=== PATIENT | female | born 1940 | race Caucasian/White ===

== ENCOUNTER → 2020-12-03 17:32 | Outpatient (CLI) | payer MEDICARE, SELFPAY | PROVIDERS: PCP Family Medicine; Referring Provider Family Medicine; Visit Provider Family Medicine | DX: Z11.59 Encounter for screening for other viral diseases (principal); R53.1 Weakness | CPT/HCPCS: 87635; C9803; U0005; U0003 ==

== ENCOUNTER 2025-09-23 17:26 | Inpatient (IN) | payer MEDICARE, MEDICAID, SELFPAY ==
[2025-09-23 17:52] VITALS: BP 167/78; PULSE 70; PULSE 72; RESP 18; TEMP 36.9; O2SAT 91; BMI 35.5
--- NOTE | 2025-09-23 19:00 | PCM.HP.STD ---
HPI - General General Date of Admission: 09/23/25 Date of Service: 09/24/25 Chief Complaint: Here for rehabilitation. HPI Narrative KEYLA SULLIVAN, is a 85 Female who presents with followin09/19/2025 Admit to [facility] with weakness. Brought into ED by family due to progressive weakness, recurrent falls. Workup in ED unremarkable, no chest pain, no shortness of breath, no palpitations. No abdominal pain, no nausea, no vomiting. Imaging workup unremarkable. PT/OT/CM. PT/OT recommended SNF. Pre-CERT for TCU. 09/23/2025 Admit to TCU with debility, here for rehabilitation, strengthening, prior to discharge home alone. Keyla tells me 2 years ago, she injured left foot requiring casting, and infection requiring treatment. She also has severe osteoarthritis bilateral knees, gel shots not helpful. She is not interested in knee replacement surgery at her age. She also heard from others knee replacement is a difficult procedure to go through. [facility] Medical History (Updated 09/23/25 @ 19:[address] Paul Araujo MD) Restless leg syndrome Hypothyroidism Gastric ulcer Essential (primary) hypertension Hyperlipidemia, unspecified COPD (chronic obstructive pulmonary disease) Coronary artery disease Anxiety Debility Home Medications Medication Instructions Recorded Last Taken Type albuterol sulfate 90 mcg/actuation 1 - 2 puff inhalation Q4H PRN PRN 09/23/25 Unknown History aerosol inhaler SOB/Wheezing aspirin 81 mg tablet 81 mg PO DAILY Heart health 09/23/25 Unknown History atorvastatin 80 mg tablet 80 mg PO QHS cholesterol 09/23/25 09/22/25 21:20 History calcium 500 mg (as 1 tab PO BID Bone health 09/23/25 Unknown History carbonate)-vitamin D3 5 mcg (200 unit) tablet (Calcium 500 + D) cyanocobalamin (vitamin B-12) 100 100 mcg PO DAILY supplement 09/23/25 09/23/25 08:39 History mcg tablet duloxetine 30 mg capsule,delayed 30 mg PO DAILY depression 09/23/25 09/23/25 07:40 History release esomeprazole magnesium 40 mg 40 mg PO DAILY GERD 09/23/25 Unknown History capsule,delayed release ezetimibe 10 mg tablet 10 mg PO QHS cholesterol 09/23/25 09/22/25 21:20 History levothyroxine 112 mcg tablet 112 mcg PO DAILY Thyroid 09/23/25 09/23/25 05:35 History lorazepam 2 mg tablet 2 mg PO TID PRN PRN anxiety 09/23/25 09/23/25 07:55 History losartan 50 mg tablet 50 mg PO DAILY BP 09/23/25 09/23/25 07:55 History metoprolol succinate 25 mg 25 mg PO DAILY Heart 09/23/25 09/23/25 07:55 History tablet,extended release 24 hr nitroglycerin 0.4 mg sublingual 0.4 mg sublingual Q5M PRN chest 09/23/25 Unknown History tablet pain polyethylene glycol 3350 17 17 g PO DAILY constipation 09/23/25 Unknown History gram/dose oral powder (Miralax) ropinirole 1 mg tablet 1 mg PO BID tremors 09/23/25 09/22/25 21:20 History tramadol 50 mg tablet 100 mg PO Q8H PRN Severe pain 7-10 09/23/25 09/22/25 06:40 History Allergy/AdvReac Type Severity Reaction Status Date / Time Sulfa (Sulfonamide Allergy Rash Verified 09/23/25 17:54 Antibiotics) diclofenac AdvReac Unknown PT UNSURE Verified 09/23/25 17:54 OF REACTION lisinopril AdvReac PT UNSURE Verified 09/23/25 17:54 OF REACTION Family History (Updated 09/23/25 @ 19:[address] Paul Araujo MD) Father Hypertension Cancer Brother Hypertension Surgical History (Updated 09/23/25 @ 19:[address] Paul Araujo MD) History of tubal ligation History of partial thyroidectomy History of coronary angioplasty with insertion of stent Social History (Updated 09/24/25 @ 07:[address] Paul Araujo MD) household members: children and other details: Lives with her daughter and son-in-law. Smoking Status: Former smoker alcohol intake: never substance use type: does not use ROS Constitutional Constitutional: Denies chills, fever(s) or weight gain ENT HEENT: Denies headache(s), nasal congestion or nasal discharge Cardiovascular Cardiovascular: Denies chest pain or palpitations Respiratory/Chest Respiratory/Chest: Denies cough, excessive phlegm production or shortness of breath with exertion Gastrointestinal Gastrointestinal: Denies abdominal pain, nausea or vomiting Genitourinary Genitourinary: Denies dysuria Musculoskeletal Musculoskeletal: Denies joint pain or joint swelling Integumentary Integumentary: Denies rash or wounds Neurologic Neurologic: Denies focal weakness, numbness or tingling Psychiatric Psychiatric: Denies anxiety, auditory hallucinations, depression, homicidal ideation or suicidal ideation Vital Signs Vital Signs Vital Signs: 09/23/25 17:52 Temperature 98.4 F Temperature Source Temporal Pulse Rate 72 Respiratory Rate 18 Blood Pressure 167/78 H Blood Pressure Mean 107 Blood Pressure Source Monitor Blood Pressure Position Semi-Fowlers Blood Pressure Location Left Arm Pulse Ox 91 Oxygen Delivery Method Room Air Weight Weight: 85.36 kg Body Mass Index (BMI) 35.5 Physical Exam Const alert General Appearance: cooperative HEENT normocephalic Eyes PERRL and EOMs intact bilaterally Neck supple, no JVD and no carotid bruits Resp normal respiratory effort, normal air movement and clear to auscultation bilaterally Cardio regular rate and regular rhythm GI normal to inspection, nondistended, normoactive bowel sounds, non-tender and non-distended Extremity normal capillary refill General Extremity: Negative for edema Skin no rashes or lesions noted General Skin Exam: no breakdown Psych affect normal Appearance: appropriate Results Lab / Micro Data 09/24/25 05:19 09/24/25 06:53 Assessment & Plan Assessment/Plan (1) Debility: (2) Anxiety: (3) Coronary artery disease: (4) COPD (chronic obstructive pulmonary disease): (5) Depression: (6) Hyperlipidemia, unspecified: (7) Essential (primary) hypertension: (8) Gastric ulcer: (9) Hypothyroidism: (10) Restless leg syndrome: PLAN: Plan 85 year old female with below past medical history hospitalized for weakness, recurrent falls, no reversible causes found, admitted to TCU with debility, here for rehabilitation, strengthening, prior to discharge home alone. Debility - PT/OT. Pain - Tylenol 1000mg q6 prn pain (1-5), Tramadol 100mg q8 prn pain (7-10). Bowel - Miralax 17gm daily, senna/colace 1 tablet bid prn. Adult immunization - Administer pneumonia vaccine, covid vaccine, flu vaccine as appropriate. DVT prophylaxis - Lovenox 40mg sc daily. COPD - Albuterol 1-2 puff q4 prn. Coronary Artery Disease - Metoprolol succinate 25mg daily, Losartan 50mg daily, Aspirin 81mg daily, NTG 0.4mg sl q5m prn. Hyperlipidemia - Atorvastatin 80mg qhs, Zetia 10mg qhs. Calcium deficiency - Calcium D 1 tablet bid. Hypothyroidism - Levothyroxine 112mcg daily. Gastric ulcer - Pantoprazole 40mg daily. Restless leg syndrome - Mirapex 0.5mg bid. The following psychotropic medication was present on admission: Duloxetine 30mg daily. Psychotropic medication therapy is indicated for a diagnosis of: Major Depression. Based on my clinical evaluation, continuation of the medication is necessary at this time. Gradual dose reduction plan (select one): ____ GDR will be attempted. Will monitor patient symptoms and behaviors in response to GDR. __x__ GRD contraindicated. 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 The following psychotropic medication was present on admission: Lorazepam 2mg tid prn. Psychotropic medication therapy is indicated for a diagnosis of: Anxiety. Based on my clinical evaluation, continuation of the medication is necessary at this time. Gradual dose reduction plan (select one): ____ GDR will be attempted. Will monitor patient symptoms and behaviors in response to GDR. __x__ GRD contraindicated. Reason contraindicated: stable chronic nursing home use.
[2025-09-23] MEDS: Calcium Carb/Vitamin D 1 TABLET Tablet PO (21:02)
[2025-09-24 05:44] LABS: Hematocrit 38.5 % (37-47); Hemoglobin 12.9 g/dL (12.0-15.0); Immature Granulocytes Count 0.030 X10^3/uL (0.0-0.0); Mean Corp Hgb Conc 33.5 g/dL (32-36); Mean Corpuscular Volume 91.0 fL (81-99); Mean Platelet Vol. 10.3 fl (6.2-12.0); NRBC Flagged by Analyzer 0 % (0-5); Platelet Count 225 K/mm3 (150-450); RBC Distribution Width CV 13.4 % (11.6-14.6); RBC Distribution Width SD 44.8 fl (35.1-43.9); Red Blood Count 4.23 M/mm3 (4.2-5.4); White Blood Count 7.6 K/mm3 (4.4-11.0)
[2025-09-24 07:50] LABS: Anion Gap 9 (5-15); BUN 16 mg/dL (4-19); BUN/Creat Ratio 28.9 RATIO (10-20); Calcium,Total 9.3 mg/dL (7.6-11.0); Carbon Dioxide 26.8 mmol/L (21.0-32.0); Chloride 104 mmol/L (98-108); Estimated Creatinine Clearance 49.14 ml/min (50-250); Glucose 102 mg/dL (70-99); Potassium 4.1 mmol/L (3.3-5.1)
[2025-09-24 08:39] VITALS: PULSE 75
[2025-09-24] MEDS: Metoprolol(XL)Succ 25 MG Tablet PO (08:39)
[2025-09-24] MEDS: Calcium Carb/Vitamin D 1 TABLET Tablet PO ×2 (08:39→21:00)
[2025-09-24] MEDS: Polyethylene Glycol 3350 17 GM PACKET PO (08:43)
[2025-09-24] MEDS: Tuberculin,Purif.prot.deriv. 50 TU/ML Vial 0.1 ML ID (08:44)
[2025-09-24 08:51] VITALS: BP 150/82; PULSE 75; RESP 16; TEMP 36.8; O2SAT 93
--- NOTE | 2025-09-24 12:07 | PHA.CONS_ITS ---
Documented by User: Sigrid Hart 09/24/25 12:29 TCU RX Drug Regimen Review Subjective/Objective Subjective/Objective Subjective: TCU Admission. 85 YOF presented to outside ER with weakness. Hospitalized for weakness, recurrent falls, no reversible causes found. Admitted to TCU with debility for strengthening and rehabilitation. Objective: Allergies Sulfa (Sulfonamide Antibiotics) Allergy (Verified 09/23/25 17:54) Rash diclofenac Adverse Reaction (Unknown, Verified 09/23/25 17:54) PT UNSURE OF REACTION lisinopril Adverse Reaction (Verified 09/23/25 17:54) PT UNSURE OF REACTION Current Medications Generic Name Dose Route Start Last Admin Trade Name Freq PRN Reason Stop Dose Admin Acetaminophen 1,000 mg 09/23/25 19:33 Acetaminophen 500 Mg Tablet PO Q6H PRN PRN Pain Score 1-5 Albuterol Sulfate 1 - 2 puff 09/23/25 18:07 Albuterol Ih (6.7 Gm) 1 Puff Inhaler INHALATION Q4H PRN PRN SOB/Wheezing Aspirin 81 mg 09/24/25 08:00 09/24/25 08:39 Aspirin 81 Mg Tab.Chew PO 81 mg BREAKFAST BRUNO Administration Atorvastatin Calcium 80 mg 09/23/25 22:00 09/23/25 21:02 Atorvastatin Calcium 80 Mg Tablet PO 80 mg QHS BRUNO Administration Calcium/Vitamin D 1 tablet 09/23/25 22:00 09/24/25 08:39 Calcium Carb/Vitamin D 1 Tablet Tablet PO 1 tablet BID BRUNO Administration Duloxetine HCl 30 mg 09/24/25 10:00 09/24/25 08:39 Duloxetine Hcl 30 Mg Capsule PO 30 mg DAILY BRUNO Administration Ezetimibe 10 mg 09/23/25 22:00 09/23/25 21:02 Ezetimibe 10 Mg Tablet PO 10 mg QHS BRUNO Administration Enoxaparin Sodium 40 mg 09/24/25 08:00 09/24/25 10:13 Enoxaparin 40 Mg/0.4 Ml Syringe SC 40 mg DAILY@0600 BRUNO Administration Levothyroxine Sodium 112 mcg 09/24/25 06:00 09/24/25 05:28 Levothyroxine 112 Mcg Tablet PO 112 mcg DAILY@0600 BRUNO Administration Lorazepam 2 mg 09/23/25 17:55 09/24/25 08:47 Lorazepam 1 Mg Tablet PO 2 mg TID PRN PRN Administration ANXIETY Losartan Potassium 50 mg 09/24/25 10:00 09/24/25 08:39 Losartan Potassium 50 Mg Tablet PO 50 mg DAILY [facility] Administration Protocol Metoprolol Succinate 25 mg 09/24/25 10:00 09/24/25 08:39 Metoprolol(Xl)Succ 25 Mg Tablet PO 25 mg DAILY BRUNO Administration Protocol Nitroglycerin 0.4 mg 09/23/25 17:55 Nitroglycerin (Inpatient Use) 0.4 Mg Tab.Subl SL Q5M PRN chest pain Pantoprazole Sodium 40 mg 09/24/25 10:00 09/24/25 08:39 Pantoprazole Sodium 40 Mg Tablet PO 40 mg DAILY [facility] Administration Polyethylene Glycol 17 gm 09/24/25 10:00 09/24/25 08:43 Polyethylene Glycol 3350 17 Gm Packet PO 17 gm DAILY BRUNO Administration Pramipexole Dihydrochloride 0.5 mg 09/23/25 22:00 09/24/25 08:39 Pramipexole Di-Hcl 0.5 Mg Tablet PO 0.5 mg BID BRUNO Administration Senna/Docusate Sodium 1 tablet 09/23/25 19:32 Senna/Docusate Sodium 1 Tablet PO BID PRN Constipation Tramadol HCl 100 mg 09/23/25 17:55 09/23/25 21:03 Tramadol 50 Mg Tablet PO 100 mg Q8H PRN Administration Severe pain 7-10 Tuberculin PPD 0.1 ml 10/01/25 10:00 Tuberculin,Purif.Prot.Deriv. 50 Tu/Ml Vial ID 10/01/25 10:01 X1 ONE Problem List Restless leg syndrome (Acute) Hypothyroidism (Acute) Gastric ulcer (Acute) Essential (primary) hypertension (Acute) Hyperlipidemia, unspecified (Acute) Depression (Acute) COPD (chronic obstructive pulmonary disease) (Chronic) Coronary artery disease (Acute) Anxiety (Acute) Debility (Acute) Vital Signs Temp Pulse Resp BP Pulse Ox O2 Del Method 98.3 F 75 16 150/82 H 93 Room Air 09/24/25 08:51 09/24/25 08:51 09/24/25 08:51 09/24/25 08:51 09/24/25 08:51 09/24/25 08:51 Oxygen Delivery Method Room Air Weight: 85.36 kg Body Mass Index (BMI) 35.5 Sodium 140 mmol/L (133-145) 09/24/25 06:53 Potassium 4.1 mmol/L (3.3-5.1) 09/24/25 06:53 Chloride 104 mmol/L (98-108) 09/24/25 06:53 Carbon Dioxide 26.8 mmol/L (21.0-32.0) 09/24/25 06:53 Anion Gap 9 (5-15) 09/24/25 06:53 BUN 16 mg/dL (4-19) 09/24/25 06:53 Creatinine 0.54 mg/dL (0.70-1.20) L 09/24/25 06:53 Est GFR (MDRD) Non-Af 89 (>60) 09/24/25 06:53 BUN/Creatinine Ratio 28.9 RATIO (10-20) H 09/24/25 06:53 Glucose 102 mg/dL (70-99) H 09/24/25 06:53 Assessment/Plan: 1. Pain: acetaminophen 1000mg PO Q6H PRN pain 1-5 (no doses given) and tramadol 100mg PO Q8H PRN pain 7-10 (1 dose given for pain score of 8 in the hips/legs). Monitor pain scores before/after prn administration for response, PRN pain medication usage, symptoms of pain/resident distress and ability to participate in therapy. Monitor for constipation (last BM:09/23/25), respiratory depression (current RR range:16-18), falls and sedation[facility]delirium [facility] 2. Bowel: Miralax 17gm PO daily and senna/docusate 1T PO BID PRN constipation. Resident has not used any prn doses at this time. Last document bowel movement: 09/23/25 Monitor for usage of prn medications, abdominal pain, frequency of bowel movements, diarrhea. Recommend holding bowel regimen if resident develops diarrhea. 3. DVT prophylaxis: enoxaparin 40mg SC daily. Please continue to monitor for S/S of bleeding/DVT, hemoglobin (last 12.9g/dL), platelets (last 225,000). Enoxaparin is a renally dose medication. CrCl estimated =49mL/min. Dose appropriate for current renal function. Monitor serum creatine periodically. 4. CAD: metoprolol succinate 25mg PO daily, losartan 50mg PO daily, aspirin 81mg PO daily and nitroglycerin 0.4mg SL Q5M PRN chest pain. Resident has not used any prn doses at this time. Monitor for bradyarrhythmia, fatigue, sleep disturbance and for new/worsening heart failure symptoms. For diabetic patients, monitor glucose. Monitor serum potassium (last K =4.1mmol/L), renal function (SCr =0.54mg/dL). Monitor for chest pain, shortness of breath, exercise tolerance, BP (range since admission =70-75). 5. COPD: albuterol MDI 1-2 puff Q4H PRN SOB/wheezing. Resident has not used any prn doses at this time. Please continue to monitor for S/S of SOB, wheezing and PRN usage. 6. Hyperlipidemia: atorvastatin 80mg PO QHS and ezetimibe 10mg PO QHS. No FLP in chart. Consider FLP to determine efficacy of current lipid-lowering regimen. Thanks. Please continue to monitor for muscle pain. Monitor for headache, nausea, diarrhea, new muscle pain/cramping or weakness. Consider CPK if myopathy/rhabdomyolysis suspected. Monitor AST/ALT if symptoms suggestive of hepatoxicity. 7. Hypothyroidism: levothyroxine 112mcg PO daily. Please consider ordering a TSH as there is no level in the chart. Thanks. Please continue to monitor for S/S of hypo/hyperthyroidism. 8. Gastric ulcer: pantoprazole 40mg PO daily. Monitor for diarrhea (consider possibility of C. diff if develops). Consider serum magnesium level and B12 level with long-term use if indicated. If clinically appropriate, consider dose reduction/weaning of medication due to manager intermediate risks of C. diff and fractures ([place]). 9. Restless leg syndrome: pramipexole 0.5mg PO BID. Please continue to monitor for S/S of restless legs, abnormal dreams, drowsiness, dizziness. 10. Calcium deficiency: calcium/vitamin D 1T PO BID. Please continue to monitor calcium (last 9.3mg/dL). Assessment/Plan for indications treated with psychotropic medications: 1. Depression: duloxetine 30mg PO daily. Please see physician note regarding GDR. Monitor for diarrhea, nausea, appetite/weight loss, anxiety or drowsiness, suicidal thoughts or behaviors ([facility]ed Warning), symptoms of bleeding, symptoms of serotonin syndrome (including agitation, confusion, hyperreflexia, rigidity/myoclonus, tremor, tachycardia, tachypnea), sodium levels (last Na = 140mmol/L). Monitor blood pressure. BP range since admission =150/82-167/78. Monitor for orthostatic hypotension, including postural dizziness, syncope or falls. Check orthostatic vital signs if suspicion of orthostasis. Monitor for hepatotoxicity (abdominal pain, nausea, jaundice, dark urine, AST/ALT as clinically indicated). Monitor for efficacy including resident symptoms, behaviors and indications of distress. Monitor for tolerability including mental status, cognition, excessive sleepiness, withdrawal or decreased participation in activities and decline in physical functioning. Maximize use of nonpharmacologic/behavioral interventions to facilitate dose reduction or discontinuation as appropriate. Please evaluate the appropriateness of GDR unless contraindicated. If appropriate, GDR should be attempted in 2 separate quarters within the first year of use or admission to TCU. If GDR attempted, monitor resident symptoms/behaviors. 2. Anxiety: lorazepam 2mg PO TID PRN anxiety. Please see physician note regarding GDR. Resident has had 2 doses. Monitor for sedation, mental status and cognition. Monitor for falls (risk factor for falls) and implement fall prevention strategies. Monitor for respiratory depression. RR range since admission =16-18. Monitor prn usage and efficacy of prn doses including resident symptoms, behaviors and indications of distress. Monitor for tolerability including mental status, cognition, excessive sleepiness, withdrawal or decreased participation in activities and decline in physical functioning. Maximize use of nonpharmacologic/behavior interventions to minimize use of prn medication. Prn psychotropic order must be renewed at 14 days per policy. Evaluate continued need for medication, effect of prn medication on resident’s symptoms/distress and tolerability to determine the appropriateness of order renewal. Medical chart and medication regimen reviewed. The following medication irregularities or issues were identified: 1. Atorvastatin 80mg PO QHS and ezetimibe 10mg PO QHS. No FLP in chart. Consider FLP to determine efficacy of current lipid-lowering regimen. Thanks. 2. Levothyroxine 112mcg PO daily. Please consider ordering a TSH as there is no level in the chart. Thanks. Date Date of Note: 09/24/25 Documented by User: Dr. Paul Araujo MD 09/24/25 13:10 TCU RX Drug Regimen Review Provider Comments Provider responsibility Provider Comments to Recommendations by Pharmacy Agree
--- NOTE | 2025-09-24 12:50 | CASEMGMT ---
Social Work SW met with patient to complete initial assessment. Introduced self and role. Verified contacts. Confirmed code status as full code. Son did provided electronic copies of pt's advance directives. SW placed on chart and provided to HIM. Educated to [facility] insurance with NRD 09/25 and continued stay is not guaranteed with each review. Pt's goal is to return home with dtr and [place]. SW will continue to follow for DC planning. Aniyah Levine TEXTILES SALES REPRESENTATIVE BEHAVIORAL HEALTH DIRECTOR
[2025-09-24] MEDS: Albuterol IH (6.7 GM) 1 PUFF INHALER INHALATION (14:57)
--- NOTE | 2025-09-24 15:09 | CHAPLAIN ---
Type of Pastoral Visit ___ Initial Visit ___ Follow-up Visit ___ On-call Visit ___ General Patient Visit ___ Spiritual Assessment ___ Family Conference ___ Bereavement ___ Rapid Response ___ Code Blue ___ Other (describe below) Pastoral Care Referral From ___ Patient ___ Family ___ Nurse ___ Physician ___ High School Chemistry Teacher ___ Boat Camp Operator ___ Other (describe below) Sacrament/Intervention ___ Active listening ___ Anointing ___ Religion ___ Bereavement ___ Communion ___ Margaret exploration ___ ___ Life review ___ Prayer ___ Reconciliation ___ Sacrament of Sick ___ Supportive presence ___ Wedding ___ Other (describe below) Pastoral Comments patient was unavailable at time of attempted visit
[2025-09-25 06:55] LABS: Cholesterol 136 mg/dL (<=200); Low Density Lipoprotein Calc. 62 mg/dL; Triglycerides 98 mg/dL; Very Low Density Lipoprotein 20 mg/dL (5-40); cholesterol:hdl ratio screen 2.45
[2025-09-25 09:00] VITALS: BP 136/69; PULSE 70; RESP 16; TEMP 37.1; O2SAT 93
[2025-09-25] MEDS: Albuterol IH (6.7 GM) 1 PUFF INHALER INHALATION ×2 (09:00→16:47)
[2025-09-25 09:02] VITALS: BP 136/69; PULSE 70
[2025-09-25] MEDS: Calcium Carb/Vitamin D 1 TABLET Tablet PO ×2 (09:02→21:13)
[2025-09-25] MEDS: Metoprolol(XL)Succ 25 MG Tablet PO (09:02)
[2025-09-25] MEDS: Polyethylene Glycol 3350 17 GM PACKET PO (09:13)
--- NOTE | 2025-09-25 10:50 | RAD_ITS ---
PROCEDURE: CHEST PA AND LATERAL 09/25/2025 REASON FOR EXAM: COUGH AND LOW SPO2 TECHNIQUE: Procedure Code: RADCXR Modality: DX Procedure: CHEST PA AND LATERAL COMPARISON: None. FINDINGS: Hardware: None. Heart: No cardiomegaly. Mediastinum: Unremarkable. Lungs: Clear. No pleural effusion or pneumothorax. Bones: No acute bony abnormalities. RAD/Chest PA and Lateral IMPRESSION: No acute cardiopulmonary abnormalities. Reading Location: [id number]
--- NOTE | 2025-09-25 12:01 | NURSING ---
SPO2 86% on RA this AM. Placed on 2L and SPO2 93% Incentive spirometer and PEP provided and instruction given and patient is receptive. Lungs clear, though diminished in bases and dry cough noted that patient said started in hospital in [place]. Dr Araujo made aware and CXR ordered. CXR comes back clear and patient and Dr. Araujo made aware.
--- NOTE | 2025-09-25 12:47 | NURSING ---
Camera Machinist Note: Activity Asset: Lawanda Torres is independent in her choice of daily activities. She uses her smartphone to facetime her family, they will also visit. She enjoys anabaptism, reading tv and spending time w/family. Staff will remind her of weekly activities and respect her right to say no.
--- NOTE | 2025-09-25 13:44 | CHAPLAIN ---
Type of Pastoral Visit _x__ Initial Visit ___ Follow-up Visit ___ On-call Visit ___ General Patient Visit ___ Spiritual Assessment ___ Family Conference ___ Bereavement ___ Rapid Response ___ Code Blue ___ Other (describe below) Pastoral Care Referral From _x__ Patient ___ Family ___ Nurse ___ Physician ___ Client Server Programmer ___ Editor School Photograph ___ Other (describe below) Sacrament/Intervention _x__ Active listening ___ Anointing ___ Mosque ___ Bereavement ___ Communion _x__ Margaret exploration ___ _x__ Life review _x__ Prayer ___ Reconciliation ___ Sacrament of Sick _x__ Supportive presence ___ Wedding ___ Other (describe below) Pastoral Comments patient admits to discouragement and in struggling to accept the changes in her life; pt is weak and unable to walk; pt feels bad about living with her daughter but is thankful she does have them and their care; pt used to go to congregational but has become disconnected through elder years; pt expresses thankfulness for someone to talk with and to give her presence, support, and prayer; pt would like future visits if possible
[2025-09-25 14:06] VITALS: O2SAT 90
[2025-09-25] MEDS: Senna/Docusate Sodium 1 Tablet PO (15:25)
--- NOTE | 2025-09-25 17:04 | NURSING ---
Addendum entered by Luisa Puckett 09/25/25 17:59: Dr. Araujo ordered doxycycline, methylprednisone, IV fluids and aerosol treatments for patient due to cough and not feeling well. Son and patient made aware. Original Note: Patient reports she feels very tired and achey today and "like I have the flu." Dr. Araujo made aware and Covid swab and respiratory panel ordered and collected. Placed in enhanced droplet precautions until Covid test came back negative and in droplet precautions until respiratory panel came back negative and all care provided in room. Patient and son made aware of negative lab and x-ray results.
[2025-09-25] MEDS: 0.9% Normal Saline (1000mL) 1,000 ML 60 ML IV (19:09)
[2025-09-26] MEDS: Senna/Docusate Sodium 1 Tablet PO (08:19)
[2025-09-26 08:21] VITALS: BP 166/80; PULSE 77
[2025-09-26] MEDS: Metoprolol(XL)Succ 25 MG Tablet PO (08:21)
[2025-09-26] MEDS: Calcium Carb/Vitamin D 1 TABLET Tablet PO ×2 (08:21→21:06)
[2025-09-26] MEDS: MethylPREDNISolone DosePak 4 MG BOX PO ×2 (08:30)
[2025-09-26] MEDS: Polyethylene Glycol 3350 17 GM PACKET PO (08:36)
[2025-09-26 08:54] VITALS: BP 166/80; PULSE 77; RESP 18; TEMP 36.6; O2SAT 96
--- NOTE | 2025-09-26 08:55 | NURSING ---
Addendum entered by Constantino Yoder 09/26/25 18:18: D/C LOVENOX Original Note: PT HAD LARGE NOSE BLEED AND LG BLOOD CLOT IN THROAT THIS MORNING. NOTE LEFT FOR . MOISTURE ADDED TO OXYGEN.
[2025-09-26] MEDS: 0.9% Normal Saline (1000mL) 1,000 ML 60 ML IV (12:35)
[2025-09-27] MEDS: 0.9% Normal Saline (1000mL) 1,000 ML 60 ML IV ×2 (05:16→23:18)
[2025-09-27] MEDS: MethylPREDNISolone DosePak 4 MG BOX PO ×3 (07:53→20:42)
[2025-09-27] MEDS: Calcium Carb/Vitamin D 1 TABLET Tablet PO ×2 (07:55→20:43)
[2025-09-27 08:03] VITALS: BP 141/63; PULSE 60
[2025-09-27] MEDS: Metoprolol(XL)Succ 25 MG Tablet PO (08:03)
[2025-09-27] MEDS: Polyethylene Glycol 3350 17 GM PACKET PO (08:07)
[2025-09-27 10:00] VITALS: BP 141/63; PULSE 60; RESP 18; TEMP 36.9; O2SAT 96
[2025-09-27 20:29] VITALS: RESP 18; O2SAT 93
[2025-09-28 07:24] VITALS: O2SAT 93
[2025-09-28 08:50] VITALS: BP 156/88; PULSE 87
[2025-09-28] MEDS: Metoprolol(XL)Succ 25 MG Tablet PO (08:50)
[2025-09-28] MEDS: Calcium Carb/Vitamin D 1 TABLET Tablet PO ×2 (08:50→21:16)
[2025-09-28] MEDS: MethylPREDNISolone DosePak 4 MG BOX PO ×4 (08:53→21:15)
[2025-09-28 09:01] VITALS: BP 156/88; PULSE 87; RESP 18; TEMP 36.3; O2SAT 96
[2025-09-28 13:30] VITALS: PULSE 87; RESP 18; O2SAT 96
[2025-09-28 16:00] VITALS: BP 154/73; PULSE 60; RESP 14; TEMP 36.4; O2SAT 95
[2025-09-28] MEDS: 0.9% Saline Lock 10 ML Syringe IV (21:19)
[2025-09-29 07:35] VITALS: O2SAT 95
[2025-09-29] MEDS: MethylPREDNISolone DosePak 4 MG BOX PO ×4 (09:50→20:57)
[2025-09-29] MEDS: Calcium Carb/Vitamin D 1 TABLET Tablet PO ×2 (09:53→20:56)
[2025-09-29 09:54] VITALS: BP 126/61; PULSE 75
[2025-09-29] MEDS: Metoprolol(XL)Succ 25 MG Tablet PO (09:54)
[2025-09-29 10:05] VITALS: BP 126/61; PULSE 75; RESP 18; TEMP 36.4; O2SAT 94
[2025-09-29] MEDS: 0.9% Saline Lock 10 ML Syringe IV (13:24)
[2025-09-30 06:58] VITALS: O2SAT 93
--- NOTE | 2025-09-30 08:24 | NURSING ---
Administrative Intern Note; MDS for 09/30/2025 Complete
[2025-09-30 09:08] VITALS: BP 146/68; PULSE 66; RESP 17; TEMP 36.3; O2SAT 96
[2025-09-30] MEDS: MethylPREDNISolone DosePak 4 MG BOX PO ×3 (09:23→20:18)
[2025-09-30 09:25] VITALS: BP 146/68; PULSE 66
[2025-09-30] MEDS: Metoprolol(XL)Succ 25 MG Tablet PO (09:25)
[2025-09-30] MEDS: Calcium Carb/Vitamin D 1 TABLET Tablet PO ×2 (09:25→20:19)
[2025-09-30 10:00] VITALS: RESP 17; O2SAT 96
--- NOTE | 2025-09-30 11:09 | NURSING ---
offered covid vaccine, VIS provided. Resident declines.
--- NOTE | 2025-09-30 12:07 | CASEMGMT ---
Social Work SW completed BIMS () and PHQ-9 () for MDS assessment. SW explored positive responses. Pt relates her lack of energy to decline in medical condition. SW provided supportive listening. SW will continue to monitor for changes. Aniyah Levine UNIVERSITY REGISTRAR BACK SHOE OPERATOR
[2025-09-30 15:40] VITALS: BP 145/71; PULSE 59; RESP 18; TEMP 35.7; O2SAT 96
--- NOTE | 2025-09-30 20:13 | NURSING ---
Addendum entered by Lalo Henson 09/30/25 20:25: Administered HS medications and PRN Ativan at this time per pt request Original Note: Pt requests PRN Ativan at this time. Non pharmacological measures such as turning and repositioning, Tv, soft music, snack, and drink ineffective. See eMAR assessment.
[2025-09-30] MEDS: 0.9% Saline Lock 10 ML Syringe IV (20:19)
[2025-10-01 01:48] VITALS: PULSE 61; O2SAT 95
[2025-10-01 06:00] LABS: Hematocrit 40.7 % (37-47); Hemoglobin 13.6 g/dL (12.0-15.0); Immature Granulocytes Count 0.070 X10^3/uL (0.0-0.0); Mean Corp Hgb Conc 33.4 g/dL (32-36); Mean Corpuscular Volume 91.1 fL (81-99); Mean Platelet Vol. 10.4 fl (6.2-12.0); NRBC Flagged by Analyzer 0 % (0-5); Platelet Count 271 K/mm3 (150-450); RBC Distribution Width CV 13.2 % (11.6-14.6); RBC Distribution Width SD 44.1 fl (35.1-43.9); Red Blood Count 4.47 M/mm3 (4.2-5.4); White Blood Count 10.6 K/mm3 (4.4-11.0)
[2025-10-01 06:22] LABS: Anion Gap 10 (5-15); BUN 19 mg/dL (4-19); BUN/Creat Ratio 30.3 RATIO (10-20); Calcium,Total 9.8 mg/dL (7.6-11.0); Carbon Dioxide 29.0 mmol/L (21.0-32.0); Chloride 99 mmol/L (98-108); Estimated Creatinine Clearance 49.14 ml/min (50-250); Glucose 100 mg/dL (70-99); Potassium 4.4 mmol/L (3.3-5.1)
[2025-10-01 09:32] VITALS: BP 151/86; PULSE 91; RESP 18; TEMP 36.3; O2SAT 93
[2025-10-01] MEDS: MethylPREDNISolone DosePak 4 MG BOX PO (09:34)
[2025-10-01 09:35] VITALS: PULSE 91
[2025-10-01] MEDS: Calcium Carb/Vitamin D 1 TABLET Tablet PO ×2 (09:35→21:34)
[2025-10-01] MEDS: Metoprolol(XL)Succ 25 MG Tablet PO (09:35)
--- NOTE | 2025-10-01 10:21 | MDS.RN ---
Information for the MDS was obtained from review of the clinical record, interview of resident, staff, and direct observation of resident’s care. Pain assessment for MDS was completed on 09/30/25.
[2025-10-01] MEDS: Tuberculin,Purif.prot.deriv. 50 TU/ML Vial 0.1 ML ID (11:32)
[2025-10-01 18:06] VITALS: BMI 35.2
--- NOTE | 2025-10-01 23:24 | NURSING ---
During HS med pass, this nurse went to administer pt's HS meds and discovered the pt's medrol dosepak was empty even though she was scheduled to receive it through 10/02. Pharmacy notified and confirmed the pt should still have 5 doses left in the packet. Pharmacy resolved and extended the taper through 10/03. Dr. Araujo notified.
--- NOTE | 2025-10-02 09:51 | CASEMGMT ---
Addendum entered by Aniyah Levine 10/02/25 11:03: CM is Jareth Parker - Waiver Original Note: Social Work IDT met with patient and Bria Becker Diane, (children) participated via conference call for care plan meeting. Discussed patient's progress in PT/OT/SN/RDN. Educated to [facility] insurance with NRD 10/02 and continued stay is not guaranteed with each review. Provided pt/family with written communication of insurance process and copay coverage during stay. SW inquired if Bria is comfortable with having pt return home. Offered therapy training. SW to coordinate skilled HHC at time of DC. SW also updated family that this worker had a conversation with pt at admission about her mood and loss of independence. SW suggested to pt [place] from a socialization standpoint, but also to assist with caregiver needs, which pt agreed to. Family asked many insightful questions. IDT answered. Bria stated she just underwent hip surgery and she is limited with the assistance she can provide, especially while working from home. Bria asked if Waiver can provide additional COURT INTERPRETER; currently, Waiver provides 9 hrs/day. VIKKI unaware pt was active with Waiver but requested dtr provide the name of CM for SW to contact and inquire about increase in COURT INTERPRETER. SW also noted that Waiver usually pays for [place] as well. Dtr provided SW with email address and will send CM name. Family appreciative of IDT and assistance. VIKKI requested for family to notify this worker by 10/07 of DC plan. SW will continue to follow. Aniyah Levine TOLL TEST DESK WORKER ENVELOPE SEALING MACHINE OPERATOR
[2025-10-02 10:31] VITALS: BP 180/83; PULSE 71; RESP 18; TEMP 36.2; O2SAT 97
[2025-10-02 10:34] VITALS: BP 180/83; PULSE 71
[2025-10-02] MEDS: Calcium Carb/Vitamin D 1 TABLET Tablet PO ×2 (10:34→21:50)
[2025-10-02] MEDS: Metoprolol(XL)Succ 25 MG Tablet PO (10:34)
--- NOTE | 2025-10-02 10:39 | NURSING ---
Spoke with pharmacist about steroid taper, she confirmed resident should get one dose today of 4mg then taper is completed. 4mg dose give today, order DC'd.
--- NOTE | 2025-10-02 10:47 | MDS.RN ---
Addendum entered by Missy Hernández 10/02/25 12:37: Correction-Pain is NOT well controlled. Original Note: Resident c/o Pain now well controlled, states would like Tylenol scheduled. Written communication to Dr. Araujo.
--- NOTE | 2025-10-02 12:25 | CASEMGMT ---
Addendum entered by Aniyah Levine 10/02/25 16:28: DENC sent via email to son and dtr. Copy provided to pt. Original Note: Social Work Insurance issued LCD 10/04, DC 10/05 SW phoned son to inform of DC date and explain appeal rights. Son does want to appeal as pt is not ready for DC and services are not in place to assist pt. SW provided detailed explanation of appeal rights. Son to notify this worker once completed. SW reiterated that a DC plan still needs pursued. DIL joined phone call and both asked several additional questions with plans. SW answered. Educated to private pay rate and 21 days up front, transfer to SNF [facility], or DC home with OIL WELL CABLE TOOL OPERATOR. Reitarated information from earlier POC meeting. Acknowledged barriers with DC home currently. Son inquired about Waiver assisting with LTC. SW explained there a different programs and unsure which program pt has since just learned of her having waiver. SW will continue to investigate that information. Son appreciative. - SW left VM with Marcell ARMENTA. VIKKI spoke with Natalie at [facility] and she verified pt has [facility] Medicaid that could pay for LTC and provided paperwork. SW appreciative. - SW received return call from son with appeal SW updated about [facility] and the likelihood if that covering LTC, but educated to [facility] facility and precert process, if needed. Son requested list of facilities. SW sent list of SNFs in preferred geographical area, [facility] with pt’s insurance, including quality and resource data via [employer] link to son. Son appreciative. SW will continue to follow. Plan: DC 10/05, pending appeal. disposition TBD Aniyah Levine CRUCIBLE FURNACE TENDER HUMAN RESOURCES PSYCHOLOGIST
[2025-10-02 14:32] VITALS: O2SAT 94
[2025-10-02 14:59] VITALS: BP 133/75; PULSE 71; RESP 16; TEMP 37.2; O2SAT 92
--- NOTE | 2025-10-02 16:46 | DS.PCM_ITS ---
Providers Date of Admission: 09/23/25 Primary Care Physician: Dr. Guillermo Ascencio MD Reason For Visit: FALLS Diagnosis Discharge Diagnosis (1) Debility: Status: Acute Code(s): R53.81 - Other malaise (2) Anxiety: Status: Acute Code(s): F41.9 - Anxiety disorder, unspecified (3) Coronary artery disease: Status: Acute Code(s): I25.10 - Atherosclerotic heart disease of [place] coronary artery without angina pectoris (4) COPD (chronic obstructive pulmonary disease): Status: Chronic Code(s): J44.9 - Chronic obstructive pulmonary disease, unspecified (5) Depression: Status: Acute Code(s): F32.A - Depression, unspecified (6) Hyperlipidemia, unspecified: Status: Acute Code(s): E78.5 - Hyperlipidemia, unspecified (7) Essential (primary) hypertension: Status: Acute Code(s): I10 - Essential (primary) hypertension (8) Gastric ulcer: Status: Acute Code(s): K25.9 - Gastric ulcer, unspecified as acute or chronic, without hemorrhage or perforation (9) Hypothyroidism: Status: Acute Code(s): E03.9 - Hypothyroidism, unspecified (10) Restless leg syndrome: Status: Acute Code(s): G25.81 - Restless legs syndrome Plan 85 year old female with below past medical history hospitalized for weakness, recurrent falls, no reversible causes found, admitted to TCU with debility, here for rehabilitation, strengthening, prior to discharge home alone. * Debility - PT/OT. * Pain - Tylenol 1000mg q6 prn pain (1-5), Tramadol 100mg q8 prn pain (7-10). * Bowel - Miralax 17gm daily, senna/colace 1 tablet bid prn. * Adult immunization - Administer pneumonia vaccine, covid vaccine, flu vaccine as appropriate. * DVT prophylaxis - Lovenox 40mg sc daily. * COPD - Albuterol 1-2 puff q4 prn. * Coronary Artery Disease - Metoprolol succinate 25mg daily, Losartan 50mg daily, Aspirin 81mg daily, NTG 0.4mg sl q5m prn. * Hyperlipidemia - Atorvastatin 80mg qhs, Zetia 10mg qhs. * Calcium deficiency - Calcium D 1 tablet bid. * Hypothyroidism - Levothyroxine 112mcg daily. * Gastric ulcer - Pantoprazole 40mg daily. * Restless leg syndrome - Mirapex 0.5mg bid. The following psychotropic medication was present on admission: Duloxetine 30mg daily. Psychotropic medication therapy is indicated for a diagnosis of: Major Depression. Based on my clinical evaluation, continuation of the medication is necessary at this time. Gradual dose reduction plan (select one): ____ GDR will be attempted. Will monitor patient symptoms and behaviors in response to GDR. __x__ GRD contraindicated. 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 The following psychotropic medication was present on admission: Lorazepam 2mg tid prn. Psychotropic medication therapy is indicated for a diagnosis of: Anxiety. Based on my clinical evaluation, continuation of the medication is necessary at this time. Gradual dose reduction plan (select one): ____ GDR will be attempted. Will monitor patient symptoms and behaviors in response to GDR. __x__ GRD contraindicated. 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 Medications at Discharge Home Medications albuterol sulfate 90 mcg/actuation aerosol inhaler 1 - 2 puff inhalation Q4H PRN PRN SOB/Wheezing 09/23/25 aspirin 81 mg tablet 81 mg PO DAILY Heart health 09/23/25 atorvastatin 80 mg tablet 80 mg PO QHS cholesterol 09/23/25 calcium 500 mg (as carbonate)-vitamin D3 5 mcg (200 unit) tablet (Calcium 500 + D) 1 tab PO BID Bone health 09/23/25 duloxetine 30 mg capsule,delayed release 30 mg PO DAILY depression 09/23/25 esomeprazole magnesium 40 mg capsule,delayed release 40 mg PO DAILY GERD 09/23/25 ezetimibe 10 mg tablet 10 mg PO QHS cholesterol 09/23/25 levothyroxine 112 mcg tablet 112 mcg PO DAILY Thyroid 09/23/25 lorazepam 2 mg tablet 2 mg PO TID PRN PRN anxiety 09/23/25 losartan 50 mg tablet 50 mg PO DAILY BP 09/23/25 metoprolol succinate 25 mg tablet,extended release 24 hr 25 mg PO DAILY Heart 09/23/25 nitroglycerin 0.4 mg sublingual tablet 0.4 mg sublingual Q5M PRN chest pain 09/23/25 polyethylene glycol 3350 17 gram/dose oral powder (Miralax) 17 g PO DAILY constipation 09/23/25 ropinirole 1 mg tablet 1 mg PO BID tremors 09/23/25 tramadol 50 mg tablet 100 mg PO Q8H PRN Severe pain 7-10 09/23/25 Hospital Course Operations None Procedures None Summary of Care Provided Minutes Spent on Discharge: 35 Hospital Course: 85 year old female with below past medical history hospitalized for weakness, recurrent falls, no reversible causes found, admitted to TCU with debility, here for rehabilitation, strengthening, prior to discharge home alone. Discharge 10/05/2025, pending appeal, disposition TBD. Physical Exam Const alert General Appearance: cooperative HEENT normocephalic Eyes PERRL and EOMs intact bilaterally Neck supple, no JVD and no carotid bruits Resp normal respiratory effort, normal air movement and clear to auscultation bilaterally Cardio regular rate and regular rhythm GI normal to inspection, nondistended, normoactive bowel sounds, non-tender and non-distended Extremity normal capillary refill General Extremity: Negative for edema Skin no rashes or lesions noted General Skin Exam: no breakdown Psych affect normal Appearance: appropriate Weight / BMI Weight Weight: 84.6 kg Body Mass Index (BMI) 35.2 ABG / Lab / Microbiology Data 10/01/25 05:37 10/01/25 05:37 Microbiology: Microbiology 09/25/25 12:26 Mucosa - Nasopharyngeal Respiratory Panel (PCR) - Final 09/25/25 12:25 Nasal Secretion SARS-CoV-2 Antigen (Rapid) - Final D/C Instructions Discharge Activity: Return to Normal Activity, May Shower and Use Walker Weight Bearing Status: Weight bearing as tolerated Call your doctor if you observe: Fever of 101 or Higher, Inability to urinate, Inability to have a bowel movement, Shortness of breath, Dizziness, Fainting spells, Swelling in the ankles, Chest pain and Uncontrolled pain DC O2, CPAP, BIPAP Needs Home O2 Discharge instructions: No Additional Instructions: Discharge 10/05/2025, pending appeal, disposition TBD. Please Follow Up With: Isabela Prakash PA-C When: As scheduled. Meaningful Use Info Meaningful Use Meaningful Use Diagnoses (Choose all that apply): None applicable Discharge Plan Admission Admit Date/Time: 09/23/25 17:26 Primary Reason for Your Visit: Debility. Attending Provider: Paul Araujo Chi Primary Care Provider: Guillermo Ascencio Instructions Additional Instructions / Restrictions: Discharge 10/05/2025, pending appeal, disposition TBD. Discharge Orders/Prescriptions Prescriptions: Continued albuterol sulfate 90 mcg/actuation HFA aerosol inhaler 1 - 2 puff inhalation Q4H PRN PRN (Reason: SOB/Wheezing) aspirin 81 mg tablet 81 mg PO DAILY atorvastatin 80 mg tablet 80 mg PO QHS calcium carbonate-vitamin D3 [Calcium 500 + D] 500 mg-5 mcg (200 unit) tablet 1 tab PO BID duloxetine 30 mg capsule,delayed release(DR/EC) 30 mg PO DAILY esomeprazole magnesium 40 mg capsule,delayed release(DR/EC) 40 mg PO DAILY ezetimibe 10 mg tablet 10 mg PO QHS levothyroxine 112 mcg tablet 112 mcg PO DAILY lorazepam 2 mg tablet 2 mg PO TID PRN PRN (Reason: anxiety) losartan 50 mg tablet 50 mg PO DAILY metoprolol succinate 25 mg tablet extended release 24 hr 25 mg PO DAILY nitroglycerin 0.4 mg tablet, sublingual 0.4 mg sublingual Q5M PRN (Reason: chest pain) polyethylene glycol 3350 [Miralax] 17 gram/dose powder 17 g PO DAILY ropinirole 1 mg tablet 1 mg PO BID tramadol 50 mg tablet 100 mg PO Q8H PRN (Reason: Severe pain 7-10) Discontinued cyanocobalamin (vitamin B-12) 100 mcg tablet 100 mcg PO DAILY Referrals / Follow Up: Guillermo Ascencio MD [Primary Care Provider, Family Practice] Disposition Disposition (needs filled in before D/C Order can be placed): NonSkilled NH/Intermed Care
[2025-10-02 22:10] VITALS: PULSE 66; RESP 18; O2SAT 93
[2025-10-03 05:44] VITALS: PULSE 55; RESP 17; O2SAT 91
[2025-10-03 09:07] VITALS: BP 122/84; PULSE 76; RESP 16; TEMP 36.4; O2SAT 97
[2025-10-03 09:10] VITALS: PULSE 76
[2025-10-03] MEDS: Metoprolol(XL)Succ 25 MG Tablet PO (09:10)
[2025-10-03] MEDS: Calcium Carb/Vitamin D 1 TABLET Tablet PO ×2 (09:11→22:32)
[2025-10-03 14:55] VITALS: BP 125/85; PULSE 69; RESP 14; TEMP 35.3; O2SAT 92
--- NOTE | 2025-10-04 09:03 | CASEMGMT ---
Social Work Appeal determination received and denial upheld. VIKKI spoke with pt's son Eugenio regarding discharge plan. Per Eugenio, a secondary appeal was filed with [facility]. VIKKI received VM from Dorene at [facility], reconsideration appeal was filed and a determination will be made in 1-14 days. No new medical records are needed. The case will be reviewed by a different physician at [facility]. Son Eugenio states that he will pay privately for pt to remain in TCU for one week with a planned discharge on 10/12. VIKKI provided Eugenio with the cost and directions to pay at the [employer] office. Per Eugenio's request, the Determination Letter from [facility] was emailed to Eugenio. Eugenio also requesting medical records for pts stay. VIKKI directed Darek to HIM and also emailed a Release of Information form. Team notified of plan for pt to remain in facility with DC date of 10/12. VIKKI will follow up next week for continued discharge planning. MALA Musa
[2025-10-04 09:51] VITALS: BP 134/74; PULSE 78
[2025-10-04] MEDS: Metoprolol(XL)Succ 25 MG Tablet PO (09:51)
[2025-10-04] MEDS: Calcium Carb/Vitamin D 1 TABLET Tablet PO ×2 (09:51→20:14)
[2025-10-04 15:49] VITALS: BP 132/75; PULSE 68; RESP 13; TEMP 36.2; O2SAT 94
[2025-10-05 07:08] VITALS: O2SAT 94
[2025-10-05 08:40] VITALS: BP 121/61; PULSE 64; RESP 17; TEMP 36.3; O2SAT 95
[2025-10-05 08:46] VITALS: BP 121/61; PULSE 64
[2025-10-05] MEDS: Metoprolol(XL)Succ 25 MG Tablet PO (08:46)
[2025-10-05] MEDS: Calcium Carb/Vitamin D 1 TABLET Tablet PO ×2 (08:47→19:27)
[2025-10-06 08:17] VITALS: O2SAT 95
[2025-10-06 08:42] VITALS: BP 124/62; PULSE 65; RESP 18; TEMP 36.3; O2SAT 95
[2025-10-06 08:43] VITALS: BP 126/62; PULSE 65
[2025-10-06] MEDS: Metoprolol(XL)Succ 25 MG Tablet PO (08:43)
[2025-10-06] MEDS: Calcium Carb/Vitamin D 1 TABLET Tablet PO ×2 (08:44→20:49)
[2025-10-07] MEDS: Calcium Carb/Vitamin D 1 TABLET Tablet PO ×2 (07:51→21:52)
[2025-10-07 07:52] VITALS: BP 139/62; PULSE 53
[2025-10-07 16:00] VITALS: BP 139/62; PULSE 53; RESP 16; TEMP 36.4; O2SAT 96
[2025-10-08 05:52] LABS: Hematocrit 37.0 % (37-47); Hemoglobin 12.5 g/dL (12.0-15.0); Immature Granulocytes Count 0.070 X10^3/uL (0.0-0.0); Mean Corp Hgb Conc 33.8 g/dL (32-36); Mean Corpuscular Volume 91.1 fL (81-99); Mean Platelet Vol. 10.5 fl (6.2-12.0); NRBC Flagged by Analyzer 0 % (0-5); Platelet Count 246 K/mm3 (150-450); RBC Distribution Width CV 13.5 % (11.6-14.6); RBC Distribution Width SD 45.7 fl (35.1-43.9); Red Blood Count 4.06 M/mm3 (4.2-5.4); White Blood Count 7.5 K/mm3 (4.4-11.0)
[2025-10-08 06:16] LABS: Anion Gap 10 (5-15); BUN 15 mg/dL (4-19); BUN/Creat Ratio 25.4 RATIO (10-20); Calcium,Total 9.6 mg/dL (7.6-11.0); Carbon Dioxide 26.6 mmol/L (21.0-32.0); Chloride 102 mmol/L (98-108); Estimated Creatinine Clearance 48.90 ml/min (50-250); Glucose 93 mg/dL (70-99); Potassium 4.1 mmol/L (3.3-5.1)
--- NOTE | 2025-10-08 09:02 | CASEMGMT ---
Addendum entered by Aniyah Levine 10/08/25 11:14: SW received return call from DEREK with clarifying questions on nonskilled vs skilled HHC agencies. VIKKI educated. DEREK inquired about increase in TRIMMING MACHINE OPERATOR from catherine and Andreia. SW to follow up again with catherine ARMENTA to inquire about services and will notify DEREK of outcome. DEREK had questions about medication changes, which this worker could not answer. DEREK spoke with nurse last evening but had additional questions. VIKKI offered for Dr. Araujo to call DEREK to answer. DEREK appreciative. - VIKKI phoned Williams, catherine ARMENTA, and inquired about TRIMMING MACHINE OPERATOR and [facility]. Williams noted she spoke with the pt yesterday. Williams uncertain about how much of an increase pt can qualify for since pt lives with dtr and MASON, but acknowledges family works daily. VIKKI also informed CM that dtr just underwent hip surgery and will be recovering, thus cannot assist pt. Williams to complete assessment for increase after pt is DC'd and should be able to approve [facility]. VIKKI appreciative. - VIKKI left VM with DEREK to update on phone conversation. Original Note: Social Work SW left VM with DEREK to answer questions. Will await return call. Aniyah Levine REMOTE SENSING TECHNICIAN VENTILATOR SPECIALIST
[2025-10-08 09:14] VITALS: BP 143/74; PULSE 95; RESP 16; TEMP 37.1; O2SAT 94
[2025-10-08 09:18] VITALS: PULSE 95
[2025-10-08] MEDS: Metoprolol(XL)Succ 25 MG Tablet PO (09:18)
[2025-10-08] MEDS: Calcium Carb/Vitamin D 1 TABLET Tablet PO ×2 (09:18→20:31)
--- NOTE | 2025-10-08 11:14 | CASEMGMT ---
Addendum entered by Aniyah Levine 10/08/25 16:42: [facility] can accept with SOC Tuesday. DIL present and asked additional questions, including ST consult for cognition. SW to collaborate with IDT but likely HHC to have ST eval since pt has DC date. DEREK appreciative. Addendum entered by Aniyah Levine 10/08/25 11:42: Son provided top 5 HHC agencies. 1- [facility], 2. [facility], 3 - [facility], 4 - [facility], 5 - [facility]. SW phoned referral to [facility] Original Note: Social Work SW received call from son, Eugenio, with clarifying questions on DC process. SW answered. SW inquired about redetermination and DC date, if family wanted to wait for outcome or confirm DC, as pt cannot return. Son expressed understanding and confirmed DC date for 10/12, if outcome is not given or lost. If pt wins, pt can remain. SW confirmed. SW to coordinate skilled HHC and SW provided list of skilled HHC agencies within geographical area, [place] with insurance, that include quality and resource data via [employer] guide link. Son to review and notify SW of preferences. SW will continue to follow. Aniyah CURRAN PROGRAM MANAGER
[2025-10-08 20:25] VITALS: PULSE 60; O2SAT 94
--- NOTE | 2025-10-08 20:35 | NURSING ---
Administered HS medications at this time per pt request.
[2025-10-09 08:54] VITALS: BP 131/69; PULSE 65; RESP 17; TEMP 36.3; O2SAT 96
[2025-10-09 08:55] VITALS: BP 131/69; PULSE 65
[2025-10-09] MEDS: Metoprolol(XL)Succ 25 MG Tablet PO (08:55)
[2025-10-09] MEDS: Calcium Carb/Vitamin D 1 TABLET Tablet PO ×2 (08:56→20:51)
[2025-10-09 10:00] VITALS: PULSE 65; RESP 17; O2SAT 96
[2025-10-09 16:00] VITALS: BP 132/73; PULSE 64; RESP 18; TEMP 36.2; O2SAT 95
[2025-10-10] MEDS: Senna/Docusate Sodium 1 Tablet PO (05:21)
[2025-10-10 09:06] VITALS: BP 127/65; PULSE 69; RESP 14; TEMP 36.6; O2SAT 96
[2025-10-10] MEDS: Calcium Carb/Vitamin D 1 TABLET Tablet PO ×2 (09:20→20:09)
[2025-10-10 09:21] VITALS: BP 127/65; PULSE 69
[2025-10-10] MEDS: Metoprolol(XL)Succ 25 MG Tablet PO (09:21)
[2025-10-10] MEDS: Polyethylene Glycol 3350 17 GM PACKET PO (09:26)
[2025-10-11 08:08] VITALS: BP 151/66; PULSE 68; RESP 16; TEMP 36.5; O2SAT 92
[2025-10-11 08:11] VITALS: PULSE 68
[2025-10-11] MEDS: Calcium Carb/Vitamin D 1 TABLET Tablet PO ×2 (08:11→20:43)
[2025-10-11] MEDS: Metoprolol(XL)Succ 25 MG Tablet PO (08:11)
[2025-10-11 08:45] VITALS: PULSE 68; RESP 16
[2025-10-11] MEDS: Albuterol 2.5 MG/3 ML VIAL.NEB. INHALATION (08:45)
--- NOTE | 2025-10-11 13:31 | MDS.RN ---
Pain assessment for MDS complete.
--- NOTE | 2025-10-11 15:38 | NURSING ---
pt c/o burning with urination and difficulty w/control. dr stafford aware, new order for UA C&S
--- NOTE | 2025-10-11 16:28 | CASEMGMT ---
Social Work SW completed BIMS () and PHQ-9 (09/02) for MDS assessment. Aniyah Levine CREW TRUCK DRIVER RN BURN
[2025-10-11 18:53] LABS: Mucous, Urine 0 SEEN /hpf (<or=2+)
[2025-10-11 19:06] LABS: Color, Urine Yellow (Yellow); Glucose, Dipstick Normal (Normal); Ketone-Dipstick Negative (Negative); Leukocyte Esterase-Dipstick 500 /ul (Negative); Nitrite-Dipstick Positive (Negative); Occult Blood-Urine 250 /ul (Negative); Protein-Dipstick 100 mg/dl (Negative); Specific Gravity, Urine 1.020 (1.002-1.030); Urine Bilirubin Dipstick Negative (Negative)
[2025-10-11 19:53] LABS: Red Blood Cells-Urine 10-25 SEEN /hpf (0-5); Squamous Epithelial Cells - UA 0-5 SEEN /hpf (5-10)
[2025-10-12 09:57] VITALS: BP 132/70; PULSE 69; RESP 17; TEMP 36.4; O2SAT 92
[2025-10-12] MEDS: Calcium Carb/Vitamin D 1 TABLET Tablet PO (10:00)
[2025-10-12 10:01] VITALS: PULSE 69
[2025-10-12] MEDS: Metoprolol(XL)Succ 25 MG Tablet PO (10:01)
[2025-10-12 11:30] VITALS: BP 132/70; PULSE 69; RESP 17; TEMP 36.4; O2SAT 92
== END 2025-10-12 11:30 | disposition home health service (06) | DRG 92 ==
PROVIDERS: Admitting Provider Family Medicine Geriatric Medicine; PCP Family Medicine; Referring Provider Family Medicine Geriatric Medicine; Visit Provider Family Medicine Geriatric Medicine
DX: R29.6 Repeated falls (principal); J44.0 Chronic obstructive pulmonary disease with (acute) lower respiratory infection; K25.3 Acute gastric ulcer without hemorrhage or perforation; N39.0 Urinary tract infection, site not specified; F32.9 Major depressive disorder, single episode, unspecified; G25.81 Restless legs syndrome; I10 Essential (primary) hypertension; E89.0 Postprocedural hypothyroidism; M17.0 Bilateral primary osteoarthritis of knee; E58 Dietary calcium deficiency; E78.5 Hyperlipidemia, unspecified; I25.10 Atherosclerotic heart disease of native coronary artery without angina pectoris; F41.9 Anxiety disorder, unspecified; E86.0 Dehydration; J20.9 Acute bronchitis, unspecified; Z79.890 Hormone replacement therapy; Z79.82 Long term (current) use of aspirin; Z95.5 Presence of coronary angioplasty implant and graft; Z87.891 Personal history of nicotine dependence; Z79.899 Other long term (current) drug therapy
CPT/HCPCS: 36415; 71046; 80048; 80061; 81001; 84443; 85025; 87077; 87086; 87088; 87184; 87186; 87633; 87811; 94640; 97110; 97116; 97162; 97166; 97530; 97535; 97802; A4216